=== PATIENT | female | born 1950 | race Caucasian/White ===

== ENCOUNTER 2024-01-18 07:16 | Outpatient (OUT) | payer MEDICARE, OTHER, SELFPAY ==
--- NOTE | 2024-01-18 07:22 | MR_ITS ---
[address] [address] Patient Name: NOLAN SHORT MRN: [facility]:[id number] date: 1950 Sex: F Assigned Patient Location: MRI Current Patient Location: MRI Accession/Order Number: [id number] Exam Date: 01/18/2024 07:45 Report Date: 01/18/2024 09:20 At the request of: NON-STAFF PHYSICIAN Procedure: MR lumbar spine wo con EXAM: MR lumbar spine wo con CLINICAL INDICATION: Arthrodesis Z98.1, Degeneration Of Lumbar Disc COMPARISON: CT lumbar spine 01/18/2024. MRI lumbar spine 04/10/2019. TECHNIQUE/PROTOCOL: Noncontrast lumbar spine MR protocol (Sagittal T1, T2, STIR and axial T1, T2 sequences). FINDINGS: Segmentation: Normal. Conus: Terminates at mid L2. Spinal Cord and Cauda Equina: Normal. Epidural Hematoma: None. Alignment: Grade 1 anterolisthesis of L4 on L5 could relate at least in part to patient positioning. Marrow Signal: No marrow edema. Stable sclerosis in the L2 vertebral body. Vertebral Body Heights: Maintained. Sacroiliac Joints: Grossly normal given only partially visualized. Paraspinal Soft Tissues: Normal. Retroperitoneal Soft Tissues: No acute abnormalities. Postoperative Changes: Right-sided posterior instrumented fusion with laminectomy at L3-L4 and L4-L5. There is a disc prosthesis at L4-L5. Spondylotic Changes: Multilevel spondylotic changes include diffuse disc desiccation and varying degrees of intervertebral disc height loss, osteophytic ridging, and facet/ligamentum flavum hypertrophy. These have progressed since 04/10/2019. T11-T12: Small left central disc protrusion indents the ventral thecal sac. No high-grade spinal canal or foraminal narrowing. T12-L1: No disc bulge or herniation. No high-grade spinal canal or foraminal narrowing. L1-L2: No disc bulge or herniation. No high-grade spinal canal narrowing. Right foramen is patent. Mild left foraminal narrowing. Mild bilateral facet/ligamentum flavum hypertrophy. L2-L3: Slight disc bulge and osteophytic ridging together indent the ventral thecal sac. This in conjunction with moderate bilateral facet/ligamentum flavum hypertrophy and focal dorsal epidural lipomatosis overall results in moderate to advanced spinal canal narrowing. Moderate to advanced bilateral foraminal narrowing. L3-L4: Laminectomy changes. Large disc bulge with possible superimposed central disc protrusion together indent the ventral thecal sac. Moderate spinal canal narrowing. Advanced bilateral foraminal narrowing. L4-L5: Laminectomy changes. Slight disc bulge. No high-grade spinal canal narrowing. Mild bilateral foraminal narrowing. L5-S1: No disc bulge or herniation. No high-grade spinal canal narrowing. Mild bilateral foraminal narrowing. MR/MR lumbar spine wo con IMPRESSION: 1. Multilevel spondylotic changes have progressed since 04/10/2019. Spinal canal narrowing is moderate to advanced at L2-L3, contributed to by disc bulge, osteophytic ridging, and facet/ligamentum flavum hypertrophy, and focal dorsal epidural lipomatosis. 2. Foraminal narrowing is advanced bilaterally at L3-L4 as well as moderate to advanced bilaterally at L2-L3. 3. Right-sided posterior instrumented fusion with laminectomy at L3-L4 and L4-L5. There is a disc prosthesis at L4-L5. Electronically authenticated by: ANKUSH FERNANDEZ Date: 01/18/2024 09:20
--- NOTE | 2024-01-18 07:22 | CT_ITS ---
[address] [address] Patient Name: NOLAN SHORT MRN: [id number] date: 1950 Sex: F Assigned Patient Location: MRI Current Patient Location: MRI Accession/Order Number: [id number] Exam Date: 01/18/2024 07:25 Report Date: 01/18/2024 08:27 At the request of: NON-STAFF PHYSICIAN Procedure: CT lumbar spine wo con EXAM: CT lumbar spine wo con CLINICAL INDICATION: Arthrodesis Z98.1, Degeneration Of Lumbar Disc COMPARISON: MRI lumbar spine 04/10/2019. CT abdomen/pelvis 08/26/2015. TECHNIQUE: Multiple axial images were obtained of the lumbar spine. Soft tissue and bone windows in coronal and sagittal planes were obtained and reviewed. Dose reduction techniques were achieved by using automated exposure control and/or adjustment of mA and/or kV according to patient size and/or use of iterative reconstruction technique. FINDINGS: Osseous Mineralization: Mild osseous demineralization limits evaluation of fine osseous detail. Stable dense sclerosis in the L2 vertebral body. Trauma: Nondisplaced age-indeterminate lucency traverses the left L1 inferior articular process (7:22 and 6:35). No traumatic malalignment, facet dislocation, or discrete epidural hemorrhage. Alignment: Grade 1 anterolisthesis of L4 on L5 could relate at least in part to patient positioning. Vertebral Body Heights: Maintained. Soft Tissues: Normal. Spondylotic Changes: Multilevel spondylotic changes include varying degrees of intervertebral disc height loss, endplate sclerosis, osteophytic ridging, and facet/ligamentum flavum hypertrophy. Intervertebral disc height loss is advanced at L2-L3 and L3-L4. Postoperative Changes: Right-sided posterior instrumented fusion with laminectomy at L4-L5 and disc prosthesis. The right L4 and L5 pedicle screws extend beyond the anterior cortex of both L4 and L5 vertebral bodies. No surrounding lucency to suggest hardware loosening. Other: Scattered vascular calcifications. CT/CT lumbar spine wo con IMPRESSION: 1. Nondisplaced age-indeterminate lucency traverses the left L1 inferior articular process . This could represent a recent (acute/subacute fracture. Correlation with point tenderness is recommended. 2. Right-sided posterior instrumented fusion with laminectomy at L4-L5 and disc prosthesis. The right L4 and L5 pedicle screws extend beyond the anterior cortex of both L4 and L5 vertebral bodies. No surrounding lucency to suggest hardware loosening. 3. Multilevel spondylotic changes. Electronically authenticated by: ANKUSH FERNANDEZ Date: 01/18/2024 08:27
== END 2024-01-18 07:17 | disposition home or self-care (01) ==
LOC: MRI 07:16
PROVIDERS: PCP Nurse Practitioner
DX: M51.37 Other intervertebral disc degeneration, lumbosacral region (principal); Z98.1 Arthrodesis status; M54.50 Low back pain, unspecified
CPT/HCPCS: 72131; 72148

== ENCOUNTER 2025-08-07 13:43 | Outpatient (OUT) | payer MEDICARE, SELFPAY ==
--- NOTE | 2025-08-07 13:53 | MR_ITS ---
The [address] [address] Patient Name: NOLAN SHORT MRN: [id number] date: 1950 Sex: F Assigned Patient Location: MRI Current Patient Location: MRI Accession/Order Number: [id number] Exam Date: 08/07/2025 14:00 Report Date: 08/07/2025 18:53 At the request of: SAFIA JOHNSON MD Procedure: MR thoracic spine wo con MRI of the thoracic spine performed without contrast INDICATION: Chronic pain syndrome, chronic thoracic pain bilateral hand weakness with intermittent numbness COMPARISON: None FINDINGS: The thoracic vertebral heights and alignment preserved. Vertebral body hemangiomas T5 and T9. Mild multilevel intervertebral space narrowing notably T8-T12. Thoracic cord is normal in signal and morphology. Multilevel facet arthropathy. T1-T2: Unremarkable T2-T3: [id number]-[id number] left-sided facet arthropathy causing [id number] left-sided facet from narrowing. Canal and foramina otherwise patent. T5-T8: Minimal broad-based disc bulge and facet arthropathy. No central canal or neural from narrowing identified. T8-T9: Right central bulge and facet arthropathy. Mild central canal and mild foraminal narrowing. T9-10: Right central bulge. Minimal facet arthropathy. Canal and neural foramina patent. T10-11: Broad-based disc bulge with [id number]-rr-[id number] facet arthropathy. Minor central canal narrowing. Mild foraminal narrowing. T11-T12: Broad-based disc bulge with facet arthropathy. Mild canal and mild from narrowing. T12-L1: Mild to moderate facet arthropathy. No significant disc disease disc protrusion central canal or neural foraminal narrowing identified. MR/MR thoracic spine wo con IMPRESSION: Mild multilevel degenerative changes. No high-grade canal or neural foraminal narrowing identified. Impression dictated by: Alvarado Calle M.D. 08/07/2025 6:53 PM Dictation Location: [place] [id number] Electronically authenticated by: [id number] Y Date: 08/07/2025 18:53
== END 2025-08-07 13:44 | disposition home or self-care (01) ==
LOC: MRI 13:44
PROVIDERS: PCP Nurse Practitioner; Visit Provider Neurological Surgery
DX: G89.4 Chronic pain syndrome (principal)
CPT/HCPCS: 72146